=== PATIENT | female | born 1985 | race Two or more races ===

== ENCOUNTER 2023-04-04 22:14 | Emergency (ER) | payer OTHER ==
[~2023-04-04] VITALS: Ht 175.3 cm; Wt 59.0 kg
[2023-04-04 23:48] LABS: HEMATOCRIT 44.3 % (36.0-45.00); HEMOGLOBIN 15.2 g/dL (12.0-15.00); MEAN CELL VOLUME 88.4 fL (80.00-100.00); MEAN CORPUSCULAR HEMOGLOBIN 30.2 pg (27.00-32.0); MEAN CORPUSCULAR HGB CONC 34.2 g/dl (32.0-36.0); PLATELET COUNT 288 K/uL (150-450); RED BLOOD COUNT 5.01 M/uL (4.00-6.00); RED CELL DISTRIBUTION WIDTH 15.1 % (11.5-14.5)
[2023-04-05 00:15] LABS: CALCIUM 9.6 mg/dL (8.5-10.1); CREATININE SERUM 0.83 mg/dL (0.55-1.02); GFR 76.94; POTASSIUM 3.78 mEq/L (3.5-5.1)
== END 2023-04-05 01:19 | disposition home or self-care (01) ==
LOC: ER 22:14
DX: K52.89 Other specified noninfective gastroenteritis and colitis (principal); R07.89 Other chest pain
CPT/HCPCS: 36415; 93005; 96365; 96372; 99284; J1885; J2765; J3490